=== PATIENT | male | born 1990 | race Caucasian/White ===

== ENCOUNTER → 2021-04-15 | Outpatient (CLI) | payer OTHER ==
--- NOTE | 2021-04-15 14:19 | RAD ---
EXAM: Lumbar spine, 3 views. HISTORY: Pain. COMPARISON: None. FINDINGS: 3 views of the lumbar spine are obtained. There is lumbar levoscoliosis centered at L3. The re is no significant listhesis. The vertebral bodies are normal in height. There is degenerative endp late remodeling and slight disc space narrowing at L1-L2. There is facet mild arthropathy at the lumb osacral junction. IMPRESSION: 1. Mild degenerative change involving the lumbar spine and mild lumbar scoliosis. 2. No acute osseous finding. Electronically signed by: Bri Casper MD (04/15/2021 2:16 PM) [id number]
== END ==
LOC: RAD 13:28
PROVIDERS: ATTEND Anesthesiology Pain Medicine
DX: Z02.71 Encounter for disability determination (principal); M47.817 Spondylosis without myelopathy or radiculopathy, lumbosacral region; G89.29 Other chronic pain
CPT/HCPCS: 72100